=== PATIENT | female | born 1950 | race Caucasian/White ===

== ENCOUNTER → 2018-09-10 | Outpatient (CLI) | payer MEDICARE, OTHER ==
--- NOTE | 2018-09-10 17:55 | RADRPT ---
Vent Rate: 93 bpm RR Interval: 0 msec SC Interval: 166 msec QRS Duration: 64 msec QT Interval: 362 msec QTC Interval: 450 msec P-R-T Bryson: 75 - 63 - 67 degrees Normal sinus rhythm Possible Left atrial enlargement Borderline ECG Electronically Signed By: Lebron Bobby
== END | disposition home or self-care (01) ==
LOC: EKG 09-09 16:57
PROVIDERS: ATTEND Internal Medicine
DX: Z01.818 Encounter for other preprocedural examination (principal); R73.03 Prediabetes
CPT/HCPCS: 93005